=== PATIENT | female | born 1980 | race Caucasian/White ===

== ENCOUNTER 2016-04-29 11:05 | Observation (INO) | payer OTHER ==
[~2016-04-29] VITALS: Ht 168 cm; Wt 72.6 kg
[2016-04-29 11:44] VITALS: BP 110/71
[2016-04-29] MEDS ORDERED: PREN1TAB80 PO (12:49)
== END 2016-04-29 12:35 | disposition home or self-care (01) ==
LOC: 4S 11:05 → UNDOADMOB 11:19 → 4S 11:19 → UNDODISOB 12:35
PROVIDERS: ADMIT Obstetrics & Gynecology; ATTEND Obstetrics & Gynecology
DX: O46.93 Antepartum hemorrhage, unspecified, third trimester (principal); O48.0 Post-term pregnancy; Z3A.40 40 weeks gestation of pregnancy
CPT/HCPCS: 59025; G0378

== ENCOUNTER 2016-05-01 11:45 | Inpatient (IN) | payer OTHER ==
[~2016-05-01] VITALS: Ht 169 cm; Wt 70.8 kg
[~2016-05-01 11:45] MED LIST: PREN1TAB80 PO
[2016-05-01] MEDS ORDERED: OXYTOCIN 30 UNITS/LACT RINGERS 500 ML IV PRN (13:03)
[2016-05-01] MEDS ORDERED: RINGERS SOLUTION,LACTATED 1,000 ML IV PRN (13:03)
[2016-05-01] MEDS ORDERED: DINOPROSTONE 10 MG VAGINAL SUPPOSITORY VG ONE (13:15)
[2016-05-01] MEDS ORDERED: METOCLOPRAMIDE HCL 5 MG/ML 2 ML VIAL IVP PRN (13:15)
[2016-05-01] MEDS ORDERED: CITRIC ACID/SODIUM CITRATE 30 ML SOLUTION UDCUP PO PRN (13:15)
[2016-05-01 13:47] LABS: BASOPHILS % (AUTO) 0.4 % (0.0-2.0); EOSINOPHILS % (AUTO) 0.5 % (1.0-6.0); HEMATOCRIT 39.4 % (36-46); HEMOGLOBIN 13.3 g/dL (12.0-16.0); LYMPHOCYTES # (AUTO) 1.8 K/uL (1.0-4.8); LYMPHOCYTES % (AUTO) 18.1 % (22.0-44.0); MEAN CORPUSCULAR HEMOGLOBIN 30.4 pg (26.0-34.0); MEAN CORPUSCULAR HGB CONC 33.7 G/dL (31.0-37.0); MEAN CORPUSCULAR VOLUME 90 fL (80-100); MONOCYTES # (AUTO) 0.4 K/uL (0.1-1.0); MONOCYTES % (AUTO) 4.4 % (2.0-9.0); NEUTROPHILS # (AUTO) 7.5 K/uL (1.8-7.7); NEUTROPHILS % (AUTO) 76.6 % (40.0-70.0); RED BLOOD CELL COUNT(AUTO) 4.36 MIL/uL (4.00-5.20); RED CELL DISTRIBUTION WIDTH 12.9 % (11.5-14.5); WHITE BLOOD COUNT (AUTO) 9.8 K/uL (4.5-11.0)
[2016-05-01] MEDS: RINGERS SOLUTION,LACTATED 1,000 ML IV SCH ×2 (16:01→22:07)
[2016-05-01 17:27] VITALS: BP 105/61
[2016-05-01] MEDS: OXYGEN THERAPY IH SCH (19:35)
[2016-05-02] MEDS: FentaNYL CITRATE-PF 100 MCG/2 ML VIAL IVP PRN ×4 (02:49→07:00)
[2016-05-02] MEDS ORDERED: OXYTOCIN 30 UNITS/LACT RINGERS 500 ML IV PRN (05:00)
[2016-05-02] MEDS: RINGERS SOLUTION,LACTATED 1,000 ML IV SCH ×3 (05:15→20:29)
[2016-05-02] MEDS: OXYGEN THERAPY IH SCH ×2 (08:00→20:00)
[2016-05-02] MEDS ORDERED: FentaNYL/BUPIV 0.125%/NS/PF 200 ML ED ONE ×2 (09:20→22:12)
[2016-05-02] MEDS ORDERED: LIDOCAINE HCL/PF 2% 5 ML VIAL ONE ×3 (09:20→20:12)
[2016-05-02] MEDS ORDERED: FentaNYL/BUPIV 0.125%/NS/PF 200 ML ED PRN (09:38)
[2016-05-02] MEDS ORDERED: DiphenhydrAMINE HCL 50 MG/ML VIAL IVP PRN (09:45)
[2016-05-02] MEDS ORDERED: PROMETHAZINE HCL 25 MG/ML VIAL IM PRN (09:45)
[2016-05-02] MEDS ORDERED: NALBUPHINE HCL 10 MG/ML VIAL IVP PRN (09:45)
[2016-05-02] MEDS ORDERED: ONDANSETRON HCL 4 MG/2 ML VIAL IVP PRN (09:45)
[2016-05-02] MEDS ORDERED: FentaNYL CITRATE-PF 100 MCG/2 ML VIAL ONE (20:12)
[2016-05-03] MEDS ORDERED: OXYTOCIN 10 UNITS/ML VIAL IM ONE
[2016-05-03] MEDS ORDERED: KETOROLAC TROMETHAMINE 60 MG/2 ML VIAL IM ONE
[2016-05-03] MEDS: RINGERS SOLUTION,LACTATED 1,000 ML IV SCH (00:18)
[2016-05-03] MEDS: OXYGEN THERAPY IH SCH (00:18)
[2016-05-03] MEDS ORDERED: LIDOCAINE HCL/PF 2% 5 ML VIAL ONE ×3 (02:32→05:07)
[2016-05-03] MEDS ORDERED: AMPICILLIN SODIUM 2 GM/NS 100 ML IV ONE ×2 (03:36→03:45)
[2016-05-03] MEDS ORDERED: GENTAMICIN 120 MG/NACL ISO-OSM 100 ML IV ONE (03:45)
[2016-05-03] MEDS ORDERED: BUPIVACAINE HCL/PF 0.5% 10 ML VIAL ONE (05:07)
[2016-05-03] MEDS ORDERED: LIDOCAINE HCL 2%/EPI 1:200,000/PF 10 ML VIAL ONE (06:20)
[2016-05-03] MEDS ORDERED: FentaNYL CITRATE-PF 100 MCG/2 ML VIAL ONE (06:23)
[2016-05-03] MEDS ORDERED: CeFAZolin 2 GM/DEXTROSE 50 ML IV ONE (06:23)
[2016-05-03] MEDS ORDERED: MORPHINE SULFATE/PF 0.5 MG/ML 10 ML AMP ONE (06:23)
[2016-05-03] MEDS ORDERED: MISOPROSTOL 100 MCG TABLET ONE (06:37)
[2016-05-03] MEDS ORDERED: DiphenhydrAMINE HCL 50 MG/ML VIAL IVP PRN ×2 (08:00)
[2016-05-03] MEDS ORDERED: DEXAMETHASONE SOD PHOS 4 MG/ML VIAL IVP PRN (08:00)
[2016-05-03] MEDS ORDERED: MEPERIDINE-PF 25 MG/ML SYRINGE IVP PRN (08:00)
[2016-05-03] MEDS ORDERED: NALOXONE HCL 0.4 MG/ML VIAL IVP PRN (08:00)
[2016-05-03] MEDS ORDERED: ONDANSETRON HCL 4 MG/2 ML VIAL IVP PRN ×2 (08:00)
[2016-05-03] MEDS ORDERED: FentaNYL CITRATE-PF 100 MCG/2 ML VIAL IVP PRN ×4 (08:00)
[2016-05-03] MEDS ORDERED: OXYGEN THERAPY IH SCH (08:00)
[2016-05-03] MEDS ORDERED: PROMETHAZINE HCL 12.5 MG in SODIUM CHLORIDE 0.9% 50 ML IV PRN (08:00)
[2016-05-03] MEDS ORDERED: NALBUPHINE HCL 10 MG/ML VIAL IVP PRN ×3 (08:00)
[2016-05-03] MEDS ORDERED: OXYTOCIN 20 UNITS in RINGERS SOLUTION,LACTATED 1,000 ML IV SCH (08:32)
[2016-05-03] MEDS ORDERED: GLYCERIN/WITCH HAZEL LEAF 40 PADS JAR TP PRN (08:45)
[2016-05-03] MEDS: DEXTROSE 5%-0.45% SODIUM CHL 1,000 ML IV SCH ×2 (11:23→18:28)
[2016-05-03] MEDS: KETOROLAC TROMETHAMINE 30 MG/ML VIAL IVP SCH ×2 (13:37→19:23)
[2016-05-04] MEDS: DEXTROSE 5%-0.45% SODIUM CHL 1,000 ML IV SCH (02:44)
[2016-05-04] MEDS: OxyCODONE HCL/ACETAMINOPHEN 5-325 MG TABLET PO PRN ×3 (02:53→23:42)
[2016-05-04 05:42] LABS: HEMATOCRIT 31.2 % (36-46); HEMOGLOBIN 10.5 g/dL (12.0-16.0); MEAN CORPUSCULAR HEMOGLOBIN 31.1 pg (26.0-34.0); MEAN CORPUSCULAR HGB CONC 33.7 G/dL (31.0-37.0); MEAN CORPUSCULAR VOLUME 92 fL (80-100); RED BLOOD CELL COUNT(AUTO) 3.38 MIL/uL (4.00-5.20); RED CELL DISTRIBUTION WIDTH 13.3 % (11.5-14.5); WHITE BLOOD COUNT (AUTO) 15.2 K/uL (4.5-11.0)
[2016-05-04] MEDS: IBUPROFEN 600 MG TABLET PO PRN ×2 (06:30→12:34)
[2016-05-04 06:50] LABS: BAND NEUTROPHILS % (MANUAL) 23 % (1-5); LYMPHOCYTES % (MANUAL) 10 % (22-44); TOTAL CELLS COUNTED 100
[2016-05-04] MEDS: OXYGEN THERAPY IH SCH (08:00)
[2016-05-04] MEDS: MAGNESIUM HYDROXIDE SUSPENSION 30 ML UDCUP PO SCH (09:25)
[2016-05-05] MEDS: IBUPROFEN 600 MG TABLET PO PRN ×3 (03:49→19:38)
[2016-05-05] MEDS: OxyCODONE HCL/ACETAMINOPHEN 5-325 MG TABLET PO PRN (03:50)
[2016-05-05] MEDS: MAGNESIUM HYDROXIDE SUSPENSION 30 ML UDCUP PO SCH ×2 (09:50→21:15)
[2016-05-06] MEDS: MAGNESIUM HYDROXIDE SUSPENSION 30 ML UDCUP PO SCH (08:23)
[2016-05-06] MEDS: IBUPROFEN 600 MG TABLET PO PRN (08:24)
[2016-05-06] MEDS: OxyCODONE HCL/ACETAMINOPHEN 5-325 MG TABLET PO PRN (08:24)
[2016-05-06] MEDS ORDERED: IBUP-2070 PO (08:48)
[2016-05-06] MEDS ORDERED: ACET1TAB12 PO (08:50)
[2016-05-06] MEDS ORDERED: DSS100 PO (08:52)
== END 2016-05-06 09:00 | disposition home or self-care (01) | DRG 765 ==
LOC: 4S 11:45 → OBSVTOIN 11:45 → 4S 05-03 12:38
PROVIDERS: ADMIT Obstetrics & Gynecology; ATTEND Obstetrics & Gynecology
PROC: 10D00Z1 Extraction of Products of Conception, Low, Open Approach (ICD-10-PCS; principal; 2016-05-03)
DX: O75.3 Other infection during labor (principal); O41.1230 Chorioamnionitis, third trimester, not applicable or unspecified; A41.9 Sepsis, unspecified organism; O77.0 Labor and delivery complicated by meconium in amniotic fluid; O62.0 Primary inadequate contractions; O09.523 Supervision of elderly multigravida, third trimester; Z3A.40 40 weeks gestation of pregnancy; Z37.0 Single live birth
CPT/HCPCS: J0290; J0690; J1580; J1885; J2274; J2590; J2765; J3010; J3490; J7120

== ENCOUNTER 2018-04-15 09:14 | Inpatient (IN) | payer OTHER ==
[~2018-04-15] VITALS: Ht 167.6 cm; Wt 68.5 kg
[~2018-04-15 09:14] MED LIST changes: +ACET1TAB12 PO; +DSS100 PO; +IBUP-2070 PO
[2018-04-15] MEDS ORDERED: RINGERS SOLUTION,LACTATED 1,000 ML IV ONE (10:17)
[2018-04-15] MEDS ORDERED: METOCLOPRAMIDE HCL 5 MG/ML 2 ML VIAL IVP ONE (10:30)
[2018-04-15] MEDS ORDERED: CITRIC ACID/SODIUM CITRATE 30 ML SOLUTION UDCUP PO ONE (10:30)
[2018-04-15] MEDS ORDERED: MORPHINE SULFATE/PF 0.5 MG/ML 10 ML AMP ONE (10:43)
[2018-04-15] MEDS ORDERED: ACETAMINOPHEN 1000 MG/ISO-OSM 100 ML IV ONE (10:43)
[2018-04-15] MEDS ORDERED: FentaNYL CITRATE-PF 100 MCG/2 ML VIAL ONE (10:43)
[2018-04-15] MEDS ORDERED: BUPIVACAINE HCL/DEX-WATER/PF 0.75% 2 ML AMP ONE (10:43)
[2018-04-15 10:45] LABS: BASOPHILS % (AUTO) 0.5 % (0.0-2.0); EOSINOPHILS % (AUTO) 1.9 % (1.0-6.0); HEMATOCRIT 39.4 % (36-46); HEMOGLOBIN 13.4 g/dL (12.0-16.0); LYMPHOCYTES # (AUTO) 1.8 K/uL (1.0-4.8); LYMPHOCYTES % (AUTO) 21.1 % (22.0-44.0); MEAN CORPUSCULAR HEMOGLOBIN 29.8 pg (26.0-34.0); MEAN CORPUSCULAR HGB CONC 34.1 G/dL (31.0-37.0); MEAN CORPUSCULAR VOLUME 88 fL (80-100); MONOCYTES # (AUTO) 0.4 K/uL (0.1-1.0); MONOCYTES % (AUTO) 4.6 % (2.0-9.0); NEUTROPHILS # (AUTO) 6.2 K/uL (1.8-7.7); NEUTROPHILS % (AUTO) 71.9 % (40.0-70.0); PLATELET COUNT (AUTO)-OB 150 K/uL (150-450); RED BLOOD CELL COUNT(AUTO) 4.51 MIL/uL (4.00-5.20); RED CELL DISTRIBUTION WIDTH 14.6 % (11.5-14.5)
[2018-04-15] MEDS ORDERED: FOLI0.4T14 PO (10:49)
[2018-04-15] MEDS ORDERED: PREN1TAB80 PO (10:49)
[2018-04-15 10:54] VITALS: BP 108/57
[2018-04-15] MEDS ORDERED: TRIAMCINOLONE ACETONIDE 40 MG/ML VIAL IM ONE (11:30)
[2018-04-15] MEDS ORDERED: DEXAMETHASONE SOD PHOS 4 MG/ML VIAL IVP PRN (11:45)
[2018-04-15] MEDS ORDERED: NALBUPHINE HCL 10 MG/ML VIAL IVP PRN ×3 (11:45)
[2018-04-15] MEDS ORDERED: FentaNYL CITRATE-PF 100 MCG/2 ML VIAL IVP PRN (11:45)
[2018-04-15] MEDS ORDERED: NALOXONE HCL 0.4 MG/ML VIAL IVP PRN (11:45)
[2018-04-15] MEDS ORDERED: DiphenhydrAMINE HCL 50 MG/ML VIAL IVP PRN ×2 (11:45)
[2018-04-15] MEDS ORDERED: MORPHINE SULFATE 10 MG/ML SYRINGE IVP PRN (11:45)
[2018-04-15] MEDS ORDERED: ONDANSETRON HCL 4 MG/2 ML VIAL IVP PRN ×2 (11:45)
[2018-04-15] MEDS ORDERED: TRIAMCINOLONE ACETONIDE 40 MG/ML VIAL ONE (11:56)
[2018-04-15] MEDS ORDERED: ACETAMINOPHEN/CODEINE 300-30 MG TABLET PO PRN ×2 (12:15)
[2018-04-15] MEDS ORDERED: LANOLIN 7 GM OINTMENT TP PRN (12:15)
[2018-04-15] MEDS: DEXTROSE 5%-0.45% SODIUM CHL 1,000 ML IV SCH ×2 (16:15→19:58)
[2018-04-15] MEDS: ACETAMINOPHEN 1000 MG/ISO-OSM 100 ML IV SCH (19:57)
[2018-04-15] MEDS ORDERED: OXYGEN THERAPY IH SCH ×3 (20:00)
[2018-04-16] MEDS: DEXTROSE 5%-0.45% SODIUM CHL 1,000 ML IV SCH ×2 (00:19→04:24)
[2018-04-16] MEDS: ACETAMINOPHEN 1000 MG/ISO-OSM 100 ML IV SCH (04:01)
[2018-04-16] MEDS ORDERED: ONDANSETRON HCL 4 MG/2 ML VIAL IVP ONE (05:45)
[2018-04-16] MEDS ORDERED: 0.9% SODIUM CHLORIDE 10 ML VIAL IVP ONE (05:45)
[2018-04-16] MEDS ORDERED: EPHEDrine SULFATE 50 MG/ML VIAL IM ONE (05:45)
[2018-04-16] MEDS ORDERED: OXYTOCIN 10 UNITS/ML VIAL IM ONE (05:45)
[2018-04-16] MEDS: IBUPROFEN 800 MG TABLET PO SCH ×3 (06:37→19:11)
[2018-04-16] MEDS: MAGNESIUM HYDROXIDE SUSPENSION 30 ML UDCUP PO SCH ×2 (09:00→11:03)
[2018-04-17] MEDS: IBUPROFEN 800 MG TABLET PO SCH ×4 (01:55→20:33)
[2018-04-17] MEDS: MAGNESIUM HYDROXIDE SUSPENSION 30 ML UDCUP PO SCH ×2 (09:00→21:05)
[2018-04-18] MEDS: IBUPROFEN 800 MG TABLET PO SCH (02:30)
[2018-04-18] MEDS ORDERED: IBUP-2071 PO (12:21)
== END 2018-04-18 12:40 | disposition home or self-care (01) | DRG 788 ==
LOC: OBSVTOIN 09:14 → 4S 09:14
PROVIDERS: ADMIT Obstetrics & Gynecology; ATTEND Obstetrics & Gynecology
PROC: 10D00Z1 Extraction of Products of Conception, Low, Open Approach (ICD-10-PCS; principal; 2018-04-15)
DX: O34.211 Maternal care for low transverse scar from previous cesarean delivery (principal); O32.1XX0 Maternal care for breech presentation, not applicable or unspecified; O09.513 Supervision of elderly primigravida, third trimester; Z3A.39 39 weeks gestation of pregnancy; Z37.0 Single live birth; Z28.21 Immunization not carried out because of patient refusal
CPT/HCPCS: 86850; 86900; 86901; 90686; J0131; J0690; J2274; J2405; J2590; J2765; J3010; J3301; J3490; J7120